=== PATIENT | female | born 1965 | race Caucasian/White ===

== ENCOUNTER 2018-12-05 22:51 | Emergency (ER) | payer OTHER ==
[2018-12-06] MEDS ORDERED: Aspirin 81 mg CHEW TAB* 81 MG TAB.CHEW PO ONE (00:42)
--- NOTE | 2018-12-06 01:04 | ED ---
HPI Chest Pain - HPI Summary HPI Summary: Patient complains of episode of chest pain starting this morning lasting about 1.5 hours while she was watching TV with associated SOB, lightheadedness, diaphoresis. Patient also complains of chronic back pain exacerbation. Patient states EMS was called this morning, but patient refused to come to the ER as she was taking care of her mother. Patient states she took 3 nitroglycerin within 15 minutes without relief. CP and SOB and diaphoresis resolved after 1.5 hours. CP described as starting lower sternal and radiating diffusely. Denies radiation of pain. History of angina. History of cardiac catheter in 2004 without stent placement. Patient arrived at this ED this evening, denies active CP, SOB, lightheadedness. Patient states she had a stress test this year in 2019. Patient usually seen at [facility]. Tile And Marble Setter is Dr. Mims (pt bessie burton) in [facility]. Patient denies fever, cough, sore throat, BELLO, neck stiffness, N/V/D, abdominal pain, change in urine, change in BM, vaginal symptoms. Medical history is CVA, prediabetic. Also states history of esophageal and gastric ulcers with repeat biopsy pending. History of recurrent heartburn at night. States this chest pain was different. Positive family cardiac history: brother at 48 from [place]. Patient is nonsmoker, occasional alcohol, denies occasional stimulants. Denies history of blood clots, history of cancer, history of recent surgery or trauma, history of recent unilateral leg pain, recent immobility, recent long travel. Patient does admit to taking Prempro regularly. - History of Current Complaint Chief Complaint: EDChestPainROMI Time Seen by Provider: 12/06/18 00:40 Hx Obtained From: Patient Onset/Duration: Started Hours Ago Timing: Lasting Hours Initial Severity: Severe Current Severity: Severe Pain Intensity: 10 Pain Scale Used: 0-10 Numeric Chest Pain Location: Diffuse Chest Pain Radiates: No Character: Pressure/Squeezing Aggravating Factor(s): Nothing Alleviating Factor(s): Nothing Associated Signs and Symptoms: Positive: Chest Pain, Shortness of Breath, Back Pain - Risk Factors Pulmonary Embolism Risk Factors: Estrogen - Allergy/Home Medications Allergies/Adverse Reactions: Allergies Allergy/AdvReac Type Severity Reaction Status Date / Time Unable to Assess Allergy Verified 05/01/19 23:04 PMH/Surg Hx/FS Hx/Imm Hx Cardiovascular History: Denies: Hx Pacemaker/ICD History: Denies: Hx Dialysis Sensory History: Denies: Hx Eye Prosthesis Opthamlomology History: Denies: Hx Legally Blind Neurological History: Reports: Hx CVA Denies: Hx Dementia Psychiatric History: Denies: Hx Autism Infectious Disease History: No Infectious Disease History: Denies: Traveled Outside the [place] in Last 30 Days - Social History Alcohol Use: Occasionally Substance Use Type: Reports: Marijuana Smoking Status (MU): Never Smoked Tobacco Review of Systems Constitutional: Negative Eyes: Negative ENT: Negative Positive: Chest Pain Positive: Shortness Of Breath Gastrointestinal: Negative Genitourinary: Negative Musculoskeletal: Other Skin: Negative Neurological: Negative Psychological: Normal All Other Systems Reviewed And Are Negative: Yes Physical Exam - Summary Physical Exam Summary: Chest pain not reproducible. Lung sounds clear to auscultation bilaterally. RRR. Abdomen soft nontender. Right side neck and right upper back tender pulp drier to palpitation. No peripheral edema. Triage Information Reviewed: Yes Vital Signs On Initial Exam: Initial Vitals Temp Pulse Resp BP Pulse Ox 97.7 F 98 22 148/109 96 12/05/18 22:59 12/05/18 22:59 12/05/18 22:59 12/05/18 22:59 12/05/18 22:59 Vital Signs Reviewed: Yes Appearance: Positive: Well-Appearing Skin: Positive: Warm Head/Face: Positive: Normal Head/Face Inspection Eyes: Positive: Normal Neck: Positive: Supple Respiratory/Lung Sounds: Positive: Clear to Auscultation Cardiovascular: Positive: Normal Abdomen Description: Positive: Nontender Musculoskeletal: Positive: Normal Neurological: Positive: Normal Psychiatric: Positive: Normal AVPU Assessment: Alert - Kinsman Coma Scale Best Eye Response: 4 - Spontaneous Best Motor Response: 6 - Obeys Commands Best Verbal Response: 5 - Oriented Coma Scale Total: 15 Diagnostics - Vital Signs Vital Signs Temp Pulse Resp BP Pulse Ox 12/05/18 22:59 97.7 F 98 22 148/109 96 - Laboratory Result Diagrams: 12/06/18 01:19 12/06/18 01:19 Lab Statement: Any lab studies that have been ordered have been reviewed, and results considered in the medical decision making process. Chest Pain Course/Dx - Course Course Of Treatment: Patient complains of episode of chest pain starting this morning lasting about 1.5 hours while she was watching TV with associated SOB, lightheadedness, diaphoresis. Patient also complains of chronic back pain exacerbation. Patient states EMS was called this morning, but patient refused to come to the ER as she was taking care of her mother. Patient states she took 3 nitroglycerin within 15 minutes without relief. CP and SOB and diaphoresis resolved after 1.5 hours. CP described as starting lower sternal and radiating diffusely. Denies radiation of pain. History of angina. History of cardiac catheter in 2004 without stent placement. Patient arrived at this ED this evening, denies active CP, SOB, lightheadedness. Patient states she had a stress test this year in 2019. Patient usually seen at [facility]. T[employer] And Marble Setter is Dr[facility]ims ([facility] in [facility]. Patient denies fever, cough, sore throat, BELLO, neck stiffness, N/V/D, abdominal pain, change in urine, change in BM, vaginal symptoms. Medical history is CVA, prediabetic. Also states history of esophageal and gastric ulcers with repeat biopsy pending. History of recurrent heartburn at night. States this chest pain was different. Positive family cardiac history: brother at 48 from [place]. Patient is nonsmoker, occasional alcohol, denies occasional stimulants. Denies history of blood clots, history of cancer, history of recent surgery or trauma, history of recent unilateral leg pain, recent immobility, recent long travel. Patient does admit to taking Prempro regularly. Physical exam:Chest pain not reproducible. Lung sounds clear to auscultation bilaterally. RRR. Abdomen soft nontender. Right side neck and right upper back tender pulp drier to palpitation. No peripheral edema. Vital signs within normal limits. D-dimer negative. CR 1.17. Labs otherwise unremarkable. EKG sinus rhythm. Chest x-ray negative for acute process. No prior records to compare to. Initial troponin negative. Chest pain occurred this morning. Patient given Toradol for back pain. Rx for Valium 5 mg. Advised patient follow up with her appraisal technician. - Diagnoses Provider Diagnoses: Chest pain, Muscle spasm Discharge - Sign-Out/Discharge Documenting (check all that apply): Patient Departure Patient Received Moderate/Deep Sedation with Procedure: No - Discharge Plan Condition: Stable Disposition: HOME Prescriptions: Cyclobenzaprine TAB* [Flexeril 10 MG TAB*] 10 mg PO TID PRN 3 Days #10 tab PRN Reason: Pain Patient Education Materials: Chest Pain (ED), Muscle Spasm (ED) Referrals: No Primary Care Phys,NOPCP [Primary Care Provider] - [facility] [Outside] Additional Instructions: Take muscle relaxers as directed for muscle spasm. Follow-up with her primary care doctor. Return to the ED for any new or worsening symptoms. - Billing Disposition and Condition Condition: STABLE Disposition: Home
[2018-12-06 01:26] LABS: ABS Basophils 0 10^3/ul (0-0.2); ABS Eosinophils 0.3 10^3/ul (0-0.6); ABS Lymphocytes 3.4 10^3/ul (1.0-4.8); ABS Monocytes 0.6 10^3/ul (0-0.8); ABS Neutrophils 2.5 10^3/ul (1.5-7.7); ABS Nucleated RBC 0 10^3/ul; Hematocrit 43 % (35-47); Hemoglobin 14.4 g/dL (12.0-16.0); Lymphocyte % 48.8 %; Mean Corpuscular HGB Conc 34 g/dL (31-36); Mean Corpuscular Hemoglobin 32 pg (27-31); Mean Corpuscular Volume 95 fL (80-97); Mean Platelet Volume 7.4 fL (7.4-10.4); Nucleated Red Blood Cells % 0.1; Platelet Count 271 10^3/uL (150-450); Red Blood Count 4.48 10^6 /uL (3.70-4.87); Red Cell Distribution Width 13 % (10.5-15)
[2018-12-06 01:39] LABS: Urine Appearance Clear; Urine Bacteria Absent (Absent); Urine Bilirubin Negative (Negative); Urine Blood Negative (Negative); Urine Color Yellow; Urine Glucose Negative (Negative); Urine Ketones Negative (Negative); Urine Nitrite Negative (Negative); Urine Protein Negative (Negative); Urine Red Blood Cell Absent (Absent); Urine Specific Gravity 1.009 (1.010-1.030); Urine Squamous Epithelial Cell Present (Absent); Urine Urobilinogen Negative (Negative); Urine White Blood Cell Trace(0-5/hpf) (Absent)
[2018-12-06 01:43] LABS: Albumin 4.6 g/dL (3.2-5.2); Albumin/Globulin Ratio 1.7 (1-3); BUN/Creatinine Ratio 20.5 (8-20); C Reactive Protein 1.76 mg/L (<8.01); Calcium 10.5 mg/dL (8.6-10.3); EGFR African American 58.3 (>60); EGFR Non-African American 48.2 (>60); Globulin 2.7 g/dL (2-4); Magnesium 1.9 mg/dL (1.9-2.7); Potassium 3.9 mmol/L (3.5-5.0); Total Bilirubin 0.4 mg/dL (0.2-1.0); Total Protein 7.3 g/dL (6.4-8.9)
[2018-12-06 01:46] LABS: INR 0.93 (0.82-1.09)
[2018-12-06 02:27] LABS: TSH (Thyroid Stimulating Horm) 3.54 mcIU/mL (0.34-5.60)
[2018-12-06] MEDS ORDERED: Ketorolac TAB * 10 MG TAB PO ONE (02:37)
[2018-12-06 02:51] VITALS: BP 111/68
== END 2018-12-06 03:20 | disposition home or self-care (01) ==
LOC: ED 22:51
DX: R07.9 Chest pain, unspecified (principal); M62.838 Other muscle spasm
CPT/HCPCS: 36415; 71045; 80053; 81003; 81015; 83605; 83690; 83735; 83880; 84443; 84484; 85025; 85379; 85610; 86140; 87086; 93005; 99283; A9270-GY

== ENCOUNTER 2019-05-19 19:16 | Emergency (ER) | payer OTHER ==
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
[2019-05-19] MEDS ORDERED: Lidocaine 2% VISCOUS* 15 ML UDC PO ONE (19:41)
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
[2019-05-20 12:14] LABS: ABS Eosinophils 0.2 10^3/ul (0-0.6); ABS Lymphocytes 2.6 10^3/ul (1.0-4.8); ABS Monocytes 0.7 10^3/ul (0-0.8); ABS Neutrophils 3.2 10^3/ul (1.5-7.7); Eosinophil % 3.2 %; Hematocrit 43 % (35-47); Hemoglobin 14.7 g/dL (12.0-16.0); Lymphocyte % 38.9 %; Mean Corpuscular HGB Conc 34 g/dL (31-36); Mean Corpuscular Hemoglobin 33 pg (27-31); Mean Corpuscular Volume 96 fL (80-97); Mean Platelet Volume 8.9 fL (7.4-10.4); Nucleated Red Blood Cells % 0.1; Platelet Count 254 10^3/uL (150-450); Red Blood Count 4.52 10^6 /uL (3.70-4.87); Red Cell Distribution Width 13 % (10-15); White Blood Count 6.8 10^3/uL (3.5-10.8)
== END 2019-05-19 20:32 | disposition home health service (06) ==
LOC: UCEAST 19:16
DX: M54.2 Cervicalgia (principal); J02.9 Acute pharyngitis, unspecified; Z91.09 Other allergy status, other than to drugs and biological substances; Z91.040 Latex allergy status; Z91.041 Radiographic dye allergy status; Z88.5 Allergy status to narcotic agent
CPT/HCPCS: 36415; 85025; 87651; 99212; G0463

== ENCOUNTER 2019-08-09 18:00 | Emergency (ER) | payer OTHER ==
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
[2019-08-09 20:08] VITALS: BP 131/85
== END 2019-08-09 19:45 | disposition home or self-care (01) ==
LOC: ED 18:00
DX: M25.512 Pain in left shoulder (principal); M54.6 Pain in thoracic spine; M25.552 Pain in left hip; M79.632 Pain in left forearm; M79.642 Pain in left hand; W18.30XA Fall on same level, unspecified, initial encounter; Y92.9 Unspecified place or not applicable; Z91.040 Latex allergy status; Z88.5 Allergy status to narcotic agent; Z91.048 Other nonmedicinal substance allergy status; Z91.09 Other allergy status, other than to drugs and biological substances
CPT/HCPCS: 99281

== ENCOUNTER 2019-08-25 06:21 | Emergency (ER) | payer OTHER ==
[2019-08-25] MEDS ORDERED: Ketorolac INJ* 30 MG/ML 1 ML VIAL IM ONE (06:58)
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
[2019-08-25 07:48] LABS: ABS Lymphocytes 1.3 10^3/ul (1.0-4.8); ABS Monocytes 0.3 10^3/ul (0-0.8); ABS Neutrophils 6.6 10^3/ul (1.5-7.7); Eosinophil % 0.5 %; Hematocrit 41 % (35-47); Hemoglobin 14.1 g/dL (12.0-16.0); Lymphocyte % 15.3 %; Mean Corpuscular HGB Conc 35 g/dL (31-36); Mean Corpuscular Hemoglobin 34 pg (27-31); Mean Corpuscular Volume 97 fL (80-97); Platelet Count 223 10^3/uL (150-450); Red Blood Count 4.21 10^6 /uL (3.70-4.87); Red Cell Distribution Width 13 % (10-15); White Blood Count 8.2 10^3/uL (3.5-10.8)
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
[2019-08-25 08:01] LABS: INR 0.87 (0.82-1.09)
[2019-08-25 08:03] LABS: ALT 16 U/L (7-52); AST 15 U/L (13-39); Albumin 4.1 g/dL (3.2-5.2); Albumin/Globulin Ratio 1.7 (1-3); Alkaline Phosphatase 58 U/L (34-104); Anion Gap 6 mmol/L (2-11); BUN/Creatinine Ratio 17.3 (8-20); Blood Urea Nitrogen 13 mg/dL (6-24); C Reactive Protein < 1.00 mg/L (<8.01); CO2 Carbon Dioxide 28 mmol/L (22-32); Calcium 8.7 mg/dL (8.6-10.3); Chloride 108 mmol/L (101-111); EGFR African American 97.1 (>60); EGFR Non-African American 80.2 (>60); Globulin 2.4 g/dL (2-4); Glucose 135 mg/dL (70-100); Magnesium 2.2 mg/dL (1.9-2.7); Potassium 4.1 mmol/L (3.5-5.0); Sodium 142 mmol/L (135-145); Total Protein 6.5 g/dL (6.4-8.9)
[2019-08-25] MEDS ORDERED: Iohexol 300* (CONTRAST) 10 ML SDV IV ONE (08:14)
[2019-08-25 09:50] VITALS: BP 179/106
== END 2019-08-25 09:55 | disposition home or self-care (01) ==
LOC: ED 06:21
DX: R07.89 Other chest pain (principal); R42 Dizziness and giddiness; R05 Cough; R00.1 Bradycardia, unspecified; M50.322 Other cervical disc degeneration at C5-C6 level; M46.92 Unspecified inflammatory spondylopathy, cervical region; M47.812 Spondylosis without myelopathy or radiculopathy, cervical region; Z91.040 Latex allergy status; Z88.5 Allergy status to narcotic agent; Z91.048 Other nonmedicinal substance allergy status; Z87.891 Personal history of nicotine dependence
CPT/HCPCS: 36415; 70491; 71046; 72050; 80053; 83605; 83735; 84484; 85025; 85379; 85610; 86140; 93005; 96372; 99282; J1885; Q9967